=== PATIENT | female | born 1980 | race Caucasian/White ===

== ENCOUNTER 2017-05-14 14:45 | Emergency (ER) | payer MEDICAID ==
[~2017-05-14] VITALS: Ht 170.2 cm; Wt 82.0 kg
[2017-05-14] MEDS ORDERED: KETOROLAC 30MG/ML VIAL IV STA (15:41)
[2017-05-14] MEDS ORDERED: ONDANSETRON HCL 4MG/2ML VIAL IV STA (15:41)
[2017-05-14] MEDS ORDERED: ACETAMINOPHEN 325MG TABLET PO STA (15:41)
[2017-05-14] MEDS ORDERED: SODIUM CHLORIDE 0.9% 1000ML BAG (SEPSIS BOLUS) IV ONE (15:45)
[2017-05-14] MEDS ORDERED: CEFTRIAXONE 1 G PREMIX 50 ML IV ONE (15:45)
[2017-05-14 16:12] LABS: HEMATOCRIT. 30.5 % (36.0-48.0); HEMOGLOBIN. 10.2 g/dL (12.0-16.0); MEAN CORPUSCULAR VOLUME 80.9 fL (81.0-99.0); MEAN PLATELET VOLUME 7.6 fl (7.4-10.4); PLATELET 326 x1000/uL (130-400); RED BLOOD CELL COUNT 3.77 mill/uL (4.2-5.4); RED CELL DISTRIBUTION WIDTH 15.7 % (11.6-14.6)
[2017-05-14 16:18] LABS: HCG SCREEN NEGATIVE
[2017-05-14 16:27] LABS: CARBON DIOXIDE 24 mEq/L (21-32); CHLORIDE 102 mEq/L (98-107)
[2017-05-14 16:35] LABS: PLATELET ESTIMATE NORMAL
[2017-05-14] MEDS ORDERED: POTASSIUM CHLORIDE 20MEQ TABLET SR PO ONE (17:00)
[2017-05-14 17:38] LABS: CLARITY URINE TURBID (CLEAR); COLOR URINE YELLOW (YELLOW); GLUCOSE URINE NEGATIVE (NEGATIVE); KETONES URINE NEGATIVE (NEGATIVE); LEUKOCYTE ESTERASE URINE 3+ (NEGATIVE); NITRITE URINE NEGATIVE (NEGATIVE); OCCULT BLOOD URINE 1+ (NEGATIVE); PROTEIN URINE TRACE (NEGATIVE); SPECIFIC GRAVITY URINE 1.005 (1.005-1.030); UROBILINOGEN URINE 0.2 E.U./dL (0.2-1.0)
[2017-05-14 20:06] VITALS: BP 111/70
== END 2017-05-14 21:22 | disposition home or self-care (01) ==
LOC: ER 14:45
DX: N39.0 Urinary tract infection, site not specified (principal); R19.00 Intra-abdominal and pelvic swelling, mass and lump, unspecified site; N83.9 Noninflammatory disorder of ovary, fallopian tube and broad ligament, unspecified
CPT/HCPCS: 36415; 71010; 74176; 76830; 76856; 80053; 81001; 83605; 83690; 84703; 85025; 87040; 87077; 87086; 87186; 96365; 96366; 96375; 99285; J0696; J1885; J2405; J7030; Z7610

== ENCOUNTER 2017-05-16 13:59 | Emergency (ER) | payer MEDICAID ==
[~2017-05-16] VITALS: Ht 170.2 cm; Wt 82.0 kg
[2017-05-16] MEDS ORDERED: ONDANSETRON 4MG ODT PO ONE (17:15)
[2017-05-16 17:52] VITALS: BP 126/76
== END 2017-05-16 17:54 | disposition home or self-care (01) ==
LOC: ER 13:59
DX: R19.00 Intra-abdominal and pelvic swelling, mass and lump, unspecified site (principal); N83.9 Noninflammatory disorder of ovary, fallopian tube and broad ligament, unspecified; N39.0 Urinary tract infection, site not specified
CPT/HCPCS: 99283; Q0162; Z7610